=== PATIENT | male | born 1960 | race African-American/Black ===

== ENCOUNTER 2020-06-21 21:47 | Emergency (ER) | payer OTHER ==
[~2020-06-21] VITALS: Ht 185.4 cm; Wt 100.0 kg
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
[2020-06-21 22:17] LABS: BASO # 0.1 x10^3/uL (0.0-0.2); BASO % 1 % (0-3); EOS # 0.1 x10^3/uL (0.0-0.7); EOS % 1 % (0-3); HEMATOCRIT 34.3 % (39.0-53.0); HEMOGLOBIN 12.1 g/dL (13.0-17.5); LYMPH # 1.9 x10^3/uL (1.0-4.8); LYMPH % 37 % (24-48); MEAN CORPUSCULAR HEMOGLOBIN 30 pg (25-35); MEAN CORPUSCULAR HGB CONC 35 g/dL (31-37); MEAN CORPUSCULAR VOLUME 86 fL (79-100); MONO # 0.6 x10^3/uL (0.0-1.1); MONO % 11 % (0-9); NEUT # 2.6 x10^3/uL (1.8-7.7); NEUT % 50 % (31-73); PLATELET COUNT 215 x10^3/uL (140-400); RED BLOOD COUNT 3.97 x10^6/uL (4.30-5.70); WHITE BLOOD COUNT 5.2 x10^3/uL (4.0-11.0)
[2020-06-21 22:24] LABS: CALCIUM 9.1 mg/dL (8.5-10.1); CREATININE 1.9 mg/dL (0.7-1.3); GFR 36.5; POTASSIUM 4.4 mmol/L (3.5-5.1)
[2020-06-21 22:29] LABS: ALBUMIN 2.9 g/dL (3.4-5.0); ALBUMIN/GLOBULIN RATIO 0.7 (1.0-1.7); TOTAL BILIRUBIN 0.2 mg/dL (0.2-1.0)
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
[2020-06-21] MEDS ORDERED: IV NORMAL SALINE 1000ML BAG 1,000 ML IV ONE (23:00)
[2020-06-21] MEDS ORDERED: fentaNYL PF VIAL 100 MCG/2 ML VIAL IVP ONE (23:00)
[2020-06-21] MEDS ORDERED: HYDR-3164 PO (23:22)
[2020-06-21] MEDS ORDERED: CYCL10TA2 PO (23:22)
[2020-06-21] MEDS ORDERED: LABETALOL 20 MG/4 ML DISP.SYRIN. IVP ONE (23:30)
[2020-06-21 23:39] VITALS: BP 210/109
== END 2020-06-21 23:55 | disposition home or self-care (01) ==
LOC: ER 21:47
DX: S00.03XA Contusion of scalp, initial encounter (principal); M54.2 Cervicalgia; M54.5 Low back pain; M25.552 Pain in left hip; R10.2 Pelvic and perineal pain; V49.88XA Car occupant (driver) (passenger) injured in other specified transport accidents, initial encounter; Y93.89 Activity, other specified; Y92.413 State road as the place of occurrence of the external cause; Y99.8 Other external cause status
CPT/HCPCS: 36415; 70450; 71045; 72125; 72128; 72131; 73502; 80053; 85025; 96361; 96374; 99285; J3490; J7030